=== PATIENT | male | born 1955 | race Caucasian/White ===

== ENCOUNTER 2017-03-15 20:56 | Emergency (ER) | payer OTHER ==
[~2017-03-15] VITALS: Ht 170.2 cm; Wt 104.3 kg
[2017-03-15 21:02] VITALS: BP_SYST 151
[2017-03-15] MEDS ORDERED: ONDANSETRON HCL 4 MG/2 ML VIAL IVP ONE ×2 (21:15→22:45)
[2017-03-15] MEDS ORDERED: NACL 0.9% 1,000 ML IV ONE (21:15)
[2017-03-15] MEDS ORDERED: HYDROmorphone 1 MG INJ. 1 MG/ML AMPUL IVP ONE (21:15)
[2017-03-15] MEDS ORDERED: PROMETHAZINE HCL 50 MG/ML AMP IM ONE (23:00)
[2017-03-15 23:10] LABS: BILIRUBIN,URINE NEGATIVE (NEGATIVE); BLOOD, URINE 3+ (NEGATIVE); CLARITY/URINE HAZY (CLEAR); COLOR,URINE YELLOW (YELLOW); GLUCOSE,URINE 3+ (NEGATIVE); KETONES,URINE 1+ (NEGATIVE); LEUKOCYTE ESTERASE ,URINE NEGATIVE (NEGATIVE); NITRITE, URINE NEGATIVE (NEGATIVE); PROTEIN URINE NEGATIVE (NEGATIVE); UROBILINOGEN,URINE 0.2 (0.2-1.0)
[2017-03-15 23:12] LABS: BACTERIA,URINE FEW /HPF (None Seen); RBC,URINE >100 /HPF (0-3)
[2017-03-15 23:13] LABS: MUCUS,URINE 1+ /LPF (None Seen)
[2017-03-15 23:40] VITALS: BP_SYST 141
== END 2017-03-15 23:40 | disposition home or self-care (01) ==
LOC: SED 20:56
DX: N20.0 Calculus of kidney (principal); E11.9 Type 2 diabetes mellitus without complications; I10 Essential (primary) hypertension; Z88.0 Allergy status to penicillin
CPT/HCPCS: 81000; 96361; 96372; 96374; 96375; 96376; 99284; J1170; J2405; J2550; J7030

== ENCOUNTER 2017-07-05 02:37 | Inpatient (IN) | payer OTHER ==
[~2017-07-05] VITALS: Ht 170.2 cm; Wt 108.4 kg
[2017-07-05 02:39] VITALS: BP_SYST 131
--- NOTE | 2017-07-05 02:40 | NUR ---
Placed in room 05. To gown for exam. Side rails up. Report given to RODERICK Deleon.
--- NOTE | 2017-07-05 02:40 | NUR ---
Patient ambulatory to ED with c/o right sided jaw pain x 2 days. Patient reports 10/10 pain to site. Was seen by dentist today. Told by dentist he had an infection to site, but increased swelling made it unable to operate on. Patient given cipro and tylenol with codeine by dentist with no relief . Presents to ED with mild swelling to jaw. Per patient, pain radiates to right side of neck and face. +N; -V/D. Respirations even and unlabored. No audbile stridor. Will continue to monitor.
--- NOTE | 2017-07-05 02:41 | NUR ---
ED MD Bergeron at bedside for medical evaluation.
[2017-07-05] MEDS ORDERED: methylPREDNISolone SOD SUCC/PF 62.5 MG/ML VIAL IVP ONE (03:00)
[2017-07-05] MEDS ORDERED: NACL 0.9% 1,000 ML IV ONE (03:00)
[2017-07-05] MEDS ORDERED: KETOROLAC TROMETHAMINE 30 MG VIAL IVP ONE (03:00)
[2017-07-05] MEDS ORDERED: CLINDAMYCIN 600 mg/50mL D5W 50 ML IV ONE (03:00)
--- NOTE | 2017-07-05 03:10 | NUR ---
Patient transported off unit via gurney for CT.
--- NOTE | 2017-07-05 03:19 | NUR ---
Patient returned to unit.
[2017-07-05 03:23] LABS: HEMATOCRIT 47.9 % (36-54); HEMOGLOBIN 15.9 g/dL (14.0-18.0); MEAN CORPUSCULAR HEMOGLOBIN 31 pg (27-31); MEAN CORPUSCULAR HGB CONC 33 % (32-36); MEAN CORPUSCULAR VOLUME 94 fL (79.0-98.0); RED BLOOD CELL COUNT(AUTO) 5.12 MIL/uL (4.2-6.2); RED CELL DISTRIBUTION WIDTH 13.3 % (9.0-15.0); WHITE BLOOD COUNT (AUTO) 11.8 K/uL (4.8-10.8)
[2017-07-05 03:24] LABS: BASOPHILS # (AUTO) 0.4 K/uL (0.0-0.2); BASOPHILS % (AUTO) 3.4 % (0.0-2.0); EOSINOPHILS # (AUTO) 0.2 K/uL (0.0-0.4); EOSINOPHILS % (AUTO) 1.6 % (0.0-4.0); LYMPHOCYTES # (AUTO) 2.4 K/uL (1.0-5.5); LYMPHOCYTES % (AUTO) 20.2 % (20.5-51.5); MONOCYTES # (AUTO) 0.8 K/uL (0.0-1.0); MONOCYTES % (AUTO) 7.1 % (1.7-9.3); NEUTROPHILS % (AUTO) 67.7 % (40.0-70.0); PLATELET COUNT (AUTO) 235 K/uL (130-430)
[2017-07-05 03:31] LABS: CALCIUM 8.9 mg/dL (8.4-11.0); CREATININE 0.9 mg/dL (0.55-1.30); POTASSIUM 4.2 mmol/L (3.5-5.1)
[2017-07-05 03:36] LABS: ALBUMIN 3.6 g/dL (3.4-4.8)
--- NOTE | 2017-07-05 03:58 | NUR ---
Oxygen applied at 2 L per minute per nasal cannula. O2 sats 93% by pulse oximetry.
--- NOTE | 2017-07-05 04:03 | NUR ---
ED MD Bergeron at bedside reassessing patient.
[2017-07-05] MEDS ORDERED: METO25TA6 PO (04:10)
[2017-07-05] MEDS ORDERED: GLUXR500 PO (04:11)
--- NOTE | 2017-07-05 04:12 | NUR ---
End of life care decisions discussed with Patient by Dr. Bergeron. Opportunity for questions and concerns addressed. Patient's code status is Full Code paperwork completed and placed in chart.
[2017-07-05] MEDS ORDERED: VANCOMYCIN HCL 1,000 MG in NS 250 ML IV ONE (04:30)
[2017-07-05] MEDS ORDERED: ACETAMINOPHEN 325 MG TABLET PO PRN (04:30)
--- NOTE | 2017-07-05 04:51 | NUR ---
ADMISSION: The patient, GIANCARLO STEVENS, 61 y/o, M admitted by BRADLEY YOUNG MD, was given written information regarding hospital policies, unit procedures and contact persons. Valuables were checked and pt informed Jose will be his nurse.
[2017-07-05 04:57] LABS: BILIRUBIN,URINE NEGATIVE (NEGATIVE); BLOOD, URINE NEGATIVE (NEGATIVE); CLARITY/URINE CLEAR (CLEAR); COLOR,URINE YELLOW (YELLOW); GLUCOSE,URINE 3+ (NEGATIVE); KETONES,URINE 2+ (NEGATIVE); LEUKOCYTE ESTERASE ,URINE NEGATIVE (NEGATIVE); NITRITE, URINE NEGATIVE (NEGATIVE); PH,URINE 5.5 (5.0-8.0); PROTEIN URINE NEGATIVE (NEGATIVE); UROBILINOGEN,URINE 0.2 (0.2-1.0)
--- NOTE | 2017-07-05 04:57 | NUR ---
Patient will be admitted to care of Dr. Clark. Admitted to Telemetry unit. Will go to room 109A. Belongings list completed. Summary report printed. Report will be given at bedside. Transfer to telemetry via ACLS protocol. Licensed nurse present. IV present no signs or symptoms of infiltration.
[2017-07-05 05:00] LABS: BACTERIA,URINE FEW /HPF (None Seen); RBC,URINE 0-3 /HPF (0-3); WBC,URINE 0-3 /HPF (0-3); YEAST,URINE Few /HPF (None Seen)
[2017-07-05 05:06] VITALS: BP_SYST 95
[2017-07-05 05:06] LABS: BARBITURATE, URINE NEGATIVE (NEG <=200); BENZODIAZEPINE, URINE NEGATIVE (NEG <=150); CANNABINOID, URINE NEGATIVE (NEG <=50); COCAINE, URINE NEGATIVE (NEG <=150); METHAMPHETAMINES SCREEN,URINE NEGATIVE (NEG <=500); OPIATE, URINE POSITIVE (NEG <=100); PHENCYCLIDINE SCREEN,URINE NEGATIVE (NEG <=25); UR TRICYCLIC ANTIDEPRESSANTS NEGATIVE (NEG <=300); URINE AMPHETAMINE NEGATIVE (NEG <=500); URINE METHADONE NEGATIVE (NEG <=200); URINE OXYCODONE SCREEN NEGATIVE (NEG <=100); URINE PROPOXYPHENE SCREEN NEGATIVE (NEG <=300)
[2017-07-05] MEDS ORDERED: VANCOMYCIN HCL 1000 MG/VIAL IV ONE (05:22)
[2017-07-05] MEDS: LR 1,000 ML IV SCH ×2 (05:25→21:08)
[2017-07-05] MEDS: INSULIN REGULAR, HUMAN 100 UNITS/ML, 10 ML VIAL (novoLIN R) SUBCUT PRN ×4 (06:04→21:10)
--- NOTE | 2017-07-05 06:59 | NUR ---
CLOSING NOTES PATIENT ON BED, AWAKE, ALERT AND VERBALLY RESPONSIVE WITH NO SIGN OF RESPIRATORY DISTRESS AND NO COMPLAIN OF PAIN AT THIS TIME. IV ATB INFUSING WELL AT THIS TIME. ALL NEEDS ATTENDED AND MET. CALL LIGHT WITHIN REACH.
[2017-07-05] MEDS ORDERED: LISI-600 PO (07:00)
[2017-07-05] MEDS ORDERED: AMLO5TAB4 PO (07:51)
[2017-07-05] MEDS ORDERED: CANA300T PO (07:51)
[2017-07-05] MEDS ORDERED: GABA-529 PO (07:51)
--- NOTE | 2017-07-05 07:55 | NUR ---
OPENING NOTES RECEIVED PATIENT FROM PAPER SEALER. PATIENT RESTING IN BED, EASILY AROUSABLE. A/Ox4. VERBALLY RESPONSIVE. DENIES PAIN AT THIS TIME. CONT ON O2 VIA NC @ 2L/M, LUISES WEL SpO2@ 94%. NO ACUTE DISTRESS. NO SOB. RESPIRATION EVEN AND UNLABORED. SKIN WARM AND DRY TO TOUCH. IVF INFUSING TO RAC, 18G, ULISES WELL. ORIENTED PATIENT TO CALL LIGHT AND PATIENT VERBALIZED UNDERSTANDING. BED IN LOW AND LOCKED POSITION. SIDERAIL UP x2. BED ALARM ON. CONTINUE TO MONITOR. CALL LIGHT IN REACH.
--- NOTE | 2017-07-05 08:20 | NUR ---
NOTES VISTING AT BEDSIDE. PATIENT STABLE. ALL NEEDS MET. CONTINUE TO MONITOR.
--- NOTE | 2017-07-05 09:40 | NUR ---
NOTES PATIENT ASLEEP. NO ACUTE DISTRESS. NO SOB. RESPIRATION EVEN AND UNLABORED. RISE AND FALL OF CHEST NOTED. NC IN PLACE WITH O2@2L/M. CALL LIGHT IN REACH. BED ALARM ON. CONTINUE TO MONITOR.
--- NOTE | 2017-07-05 11:26 | NUR ---
ID , DR SANDS IS AWARE OF THE CONSULT, RE: PHARYNGITIS
[2017-07-05] MEDS ORDERED: HYDROcodone/ACETAMIN 10-325 MG TAB PO PRN (11:45)
[2017-07-05] MEDS ORDERED: ONDANSETRON HCL 4 MG/2 ML VIAL IVP PRN (11:45)
[2017-07-05] MEDS ORDERED: ZOLPIDEM TARTRATE 5 MG TABLET PO PRN (11:45)
[2017-07-05 12:00] VITALS: BP_SYST 115
--- NOTE | 2017-07-05 12:00 | NUR ---
PATIENT SEEN AND EXAMINED BY DR. YOUNG. REPORTED TO MD THAT PATIENT ONLY HAS TYLENOL FOR MILD PAIN AND DOES NOT HAVE ANYTHING FOR MODERATE OR SEVERE PAIN; MD WILL ORDER PAIN MEDS.
--- NOTE | 2017-07-05 12:15 | NUR ---
SEEN AND EXAMINED BY AT BEDSIDE. PATIENT STABLE. NO ACUTE DISTRESS. SKIN WARM AND DRY. ALL NEEDS MET. CALL LIGHT IN REACH. CONTINUE TO MONITOR.
[2017-07-05] MEDS: GABAPENTIN 100 MG CAPSULE PO SCH ×3 (13:00→21:07)
[2017-07-05] MEDS ORDERED: LACTOBACILLUS RHAMNOSUS GG 1 CAP CAPSULE PO ONE (14:00)
[2017-07-05] MEDS ORDERED: LISINOPRIL 20 MG TABLET PO ONE (14:00)
[2017-07-05] MEDS ORDERED: CANAGLIFLOZIN 300 MG TABLET PO ONE (14:00)
[2017-07-05] MEDS ORDERED: amLODIPine BESYLATE 5 MG TABLET PO ONE (14:00)
[2017-07-05] MEDS ORDERED: DOCUSATE SODIUM 250 MG CAPSULE PO ONE (14:00)
[2017-07-05] MEDS ORDERED: METOPROLOL TARTRATE 25 MG TABLET PO ONE (14:00)
--- NOTE | 2017-07-05 15:10 | NUR ---
PATIENT C/O PAIN MEDICATION INEFFECTIVE. PAGED AT [phone] [facility]
[2017-07-05] MEDS: CLINDAMYCIN 600 MG in D5W 50 ML IV SCH ×2 (15:20→20:46)
--- NOTE | 2017-07-05 15:30 | NUR ---
/PAIN REPORTED TO PAIN MEDICATION FOR SEVERE PAIN IS EFFECTIVE PER PATIENT. PATIENT STATES PAIN IS STILL A 10 AND WANTS WHAT HE RECEIVED IN ER. RECEIVED NEW ORDER FOR TORADOL ORDERED FOR SEVERE PAIN.
[2017-07-05] MEDS ORDERED: KETOROLAC TROMETHAMINE 30 MG VIAL ONE (15:37)
--- NOTE | 2017-07-05 15:50 | NUR ---
PAGED , REGARDING PAIN MEDICATION TORADOL STILL INEFFECTIVE. WAITING FOR CALL BACK.
--- NOTE | 2017-07-05 16:00 | NUR ---
DR.HAKAK CONNELL AT BEDSIDE EVALUATING PATIENT AND PAIN MEDICATION INEFFECTIVE. RECEIVED NEW ORDER FOR DILAUDID FOR SEVERE PAIN.
--- NOTE | 2017-07-05 16:30 | NUR ---
NOTES PATIENT STABLE IN BED. PATIENT STATES PAIN MEDICATION SEEMS TO BE WORKING. NO ACUTE DISTRESS. RESPIRATION EVEN AND UNLABORED. SKIN WARM AND DRY TO TOUCH. ALL NEEDS MET. REMINDED PATIENT TO CALL FOR ASSIST IF NEEDED. BED IN LOW AND LOCKED POSITION. SIDERAIL UPx2. BED ALARM. CALL LIGHT IN REACH. PHONE IN REACH. CONTINUE TO MONITOR.
[2017-07-05 16:34] VITALS: BP_SYST 118
[2017-07-05] MEDS: HYDROmorphone 2 MG TAB PO PRN (16:49)
--- NOTE | 2017-07-05 17:30 | NUR ---
NOTES PATIENT IS SITTING IN BED SCROLLING ON IPAD. PATIENT IS STABLE. STATES PAIN IS CONTROLLED AND IS CONTENT. NO ACUTE DISTRESS. SKIN WARM AND DRY TO TOUCH. ALL NEEDS MET. BED IN LOW AND LOCKED POSITION. SIDERAIL UPx2. BED ALARM ON. CALL LIGHT IN REACH. CONTINUE TO MONITOR.
--- NOTE | 2017-07-05 19:00 | NUR ---
CLOSING NOTE PATIENT IN BED SCROLLING ON IPAD. PATIENT STABLE. PATIENT STATED PAIN IS CONTROLLED AT THIS TIME. NO ACUTE DISTRESS. RESPIRATION EVEN AND UNLABORED. SKIN WARM AND DRY TO TOUCH. PATIENT ULISES IVF. ALL NEEDS MET. BED IN LOW AND LOCKED POSITION. SIDERAIL UP x2. BED ALARM ON. CALL LIGHT IN REACH. DAUGHTER SITTING AT BEDSIDE. WILL ENDORSE TO ONCOMING SHIFT.
[2017-07-05 20:00] VITALS: BP_SYST 113
--- NOTE | 2017-07-05 20:00 | NUR ---
INITIAL NOTES RECEIVED PATIENT ON BED AWAKE AND ALERT, WITH FAMILY ON THE BEDSIDE, BREATHING EVEN AND UNLABORED, NO SOB NOTED, NO PAIN NOTED, MAINTAINED ON POSITION OF COMFORT, MAINTAINED SAFETY PRECAUTION, EXPLAINED THE PLAN OF CARE AND VERBALIZED UNDERSTANDING. SCD'S MAINTAINED, ENCOURAGED TO REPORT ANY UNTOWARD S/SX OBSERVED WILL CONTINUE TO MONITOR, CALL LIGHT WITHIN REACH.
[2017-07-05] MEDS: DOCUSATE SODIUM 250 MG CAPSULE PO SCH (21:00)
[2017-07-05] MEDS: LACTOBACILLUS RHAMNOSUS GG 1 CAP CAPSULE PO SCH (21:06)
[2017-07-05] MEDS: LISINOPRIL 20 MG TABLET PO SCH (21:07)
--- NOTE | 2017-07-05 22:00 | NUR ---
RN ROUNDS PATIENT ON BED AWAKE AND ALERT, BREATHING EVEN AND UNLABORED, NO SOB NOTED, NO PAIN NOTED, MAINTAINED ON POSITION OF COMFORT, MAINTAINED SAFETY PRECAUTION, WILL CONTINUE TO MONITOR, CALL LIGHT WITHIN REACH.
[2017-07-05 23:50] VITALS: BP_SYST 106
--- NOTE | 2017-07-05 23:53 | NUR ---
RN ROUNDS PATIENT ON BED SLEEPING AND RESTING BREATHING EVEN AND UNLABORED MAINTAINED POSITION OF COMFORT, MAINTAINED SAFETY PRECAUTION, WILL CONTINUE TO MONITOR CALL LIGHT WITHIN REACH.
--- NOTE | 2017-07-06 | NUR ---
BED ALARM PATIENT REFUSED THE BED ALARM, EXPLAINED THE RISKS AND BENEFITS AND VERBALIZED UNDERSTANDING AND STATED THAT HE WILL NOT GET UP AND FALL. WILL CONTINUE TO MONITOR.
[2017-07-06] MEDS: CLINDAMYCIN 600 MG in D5W 50 ML IV SCH ×4 (01:49→21:44)
--- NOTE | 2017-07-06 02:07 | NUR ---
RN ROUNDS PATIENT ON BED SLEEPING AND RESTING BREATHING EVEN AND UNLABORED NO SOB NOTED, MAINTAINED SAFETY PRECAUTION, MAINTAINED POSITION OF COMFORT, WITH IV INFUSING WELL, CLEAN DRY INTACT WILL CONTINUE TO MONITOR.
[2017-07-06] MEDS: HYDROmorphone 2 MG TAB PO PRN ×3 (03:28→18:24)
--- NOTE | 2017-07-06 04:02 | NUR ---
RN ROUNDS PATIENT ON BED AWAKE AND RESTING, ON SEMI LUO'S POSITION, BREATHING EVEN AND UNLABORED, MAINTAINED ON POSITION OF COMFORT, MAINTAINED SAFETY PRECAUTION, PATIENT STATED THAT HE IS HAVING PAIN ON THE RIGHT SIDE OF THE FACE, PAIN MEDICATION GIVEN AND TOLERATED WELL. WILL CONTINUE TO MONITOR, CALL LIGHT WITHIN REACH.
[2017-07-06] MEDS: KETOROLAC TROMETHAMINE 15 MG VIAL IVP PRN ×2 (06:17→17:29)
[2017-07-06 06:28] LABS: BASOPHILS % (AUTO) 0.1 % (0.0-2.0); HEMATOCRIT 46.2 % (36-54); LYMPHOCYTES # (AUTO) 1.7 K/uL (1.0-5.5); LYMPHOCYTES % (AUTO) 9.7 % (20.5-51.5); MEAN CORPUSCULAR HEMOGLOBIN 31 pg (27-31); MEAN CORPUSCULAR HGB CONC 32 % (32-36); MEAN CORPUSCULAR VOLUME 94 fL (79.0-98.0); MONOCYTES # (AUTO) 0.8 K/uL (0.0-1.0); MONOCYTES % (AUTO) 4.9 % (1.7-9.3); NEUTROPHILS # (AUTO) 14.7 K/uL (1.8-7.7); NEUTROPHILS % (AUTO) 85.3 % (40.0-70.0); PLATELET COUNT (AUTO) 240 K/uL (130-430); RED BLOOD CELL COUNT(AUTO) 4.91 MIL/uL (4.2-6.2); RED CELL DISTRIBUTION WIDTH 13.1 % (9.0-15.0); WHITE BLOOD COUNT (AUTO) 17.2 K/uL (4.8-10.8)
--- NOTE | 2017-07-06 06:32 | NUR ---
ATTENDING MD DR YOUNG WAS CALLED RE: PT COMPLAINING OF HEARTBURN, WANTS SO MED RELIEF. SPOKE TO AMANDA Addendum: 07/06/17 at 0634 by Flor Stark OR/ EDIT: WANTS MED RELIEF
--- NOTE | 2017-07-06 06:35 | NUR ---
RN ROUNDS PATIENT ON BED AWAKE AND ALERT, RESTING ON BED BREATHING EVEN AND UNLABORED NO SOB NOTED WITH O2 AT 2LPM TOLERATING WELL, MAINTAINED SAFETY PRECAUTION, MAINTAINED POSITION OF COMFORT, PATIENT TURNS FROM SIDE TO SIDE, NO PAIN NOTED, IV INFUSING WELL, INTACT CLEAN AND DRY. ASKED IF THE PATIENT IS OK, AND STATED THAT HE HAVING SOME HEART BURN, PAGED MD AND WILL WAIT FOR CALL AND ORDERS. SCD'S MAINTAINED. WILL CONTINUE TO MONITOR PATIENT CALL LIGHT WITHIN REACH.
[2017-07-06] MEDS ORDERED: MAG-AL HYDROX/SIMETH 30 ML UDC ONE (06:56)
[2017-07-06 07:18] LABS: ALBUMIN 3.2 g/dL (3.4-4.8); CALCIUM 8.5 mg/dL (8.4-11.0); CREATININE 0.79 mg/dL (0.55-1.30); POTASSIUM 4.1 mmol/L (3.5-5.1); TOTAL BILIRUBIN 1.2 mg/dL (0.0-1.0)
[2017-07-06] MEDS: MAG-AL HYDROX/SIMETH 30 ML UDC PO SCH ×6 (07:28→21:00)
--- NOTE | 2017-07-06 07:33 | NUR ---
CLOSING NOTES/NEW ORDER GIVEN BY DR BONE 0700 NEW ORDER GIVEN BY DR. BONE WITH MYLANTA 30ML, PO QID, ORDER NOTED AND CARRIED OUT. 0701 MEDICATION GIVEN AND TOLERATED WELL. REPORT GIVEN TO AM NURSE.
--- NOTE | 2017-07-06 08:02 | NUR ---
Opening Note Patient is resting in bed, he is awake and alert, oriented x4, complaining of pain 5/10 on face but states it is tolerable, he is calm, breathing unlabored on room air, saturation is at 97%, vital signs and head to toe assessment performed, patient educated on use of call light for assistance, he verbalized understanding, call light left within reach, bed in lowest position with 2 side rails up, bedside table within reach, will continue to monitor patient
[2017-07-06] MEDS: CANAGLIFLOZIN 300 MG TABLET PO SCH (08:34)
[2017-07-06] MEDS: amLODIPine BESYLATE 5 MG TABLET PO SCH (08:35)
[2017-07-06] MEDS: GABAPENTIN 100 MG CAPSULE PO SCH ×5 (08:35→21:43)
[2017-07-06] MEDS: LISINOPRIL 20 MG TABLET PO SCH (08:36)
[2017-07-06] MEDS: LACTOBACILLUS RHAMNOSUS GG 1 CAP CAPSULE PO SCH ×2 (08:36→21:43)
[2017-07-06] MEDS: DOCUSATE SODIUM 250 MG CAPSULE PO SCH ×2 (08:38→21:00)
[2017-07-06] MEDS: METOPROLOL TARTRATE 25 MG TABLET PO SCH (08:38)
--- NOTE | 2017-07-06 08:40 | NUR ---
Morning Medication Administration patient is sitting up in bed, he is awake and alert complaining of pain 5/10 but states it is tolerable at this time, breathing unlabored on room air, symmetrical chest expansion, able to tolerate medications by mouth, safety precautions in place, bed in lowest position with 2 side rails up, call light left within reach, bedside table within reach, will continue to monitor patient
--- NOTE | 2017-07-06 09:20 | NUR ---
New bag of antibiotics hung at this time, patient has no complaints of pain, breathing unlabored on room air, placed patient on 2L nasal cannula, has no other needs at this time, safety precautions in place, educated patient on using call light for assistance, he verbalized understanding, call light left within reach, bedside table within reach, will continue to monitor patient
[2017-07-06 11:51] VITALS: BP_SYST 109
[2017-07-06] MEDS: INSULIN REGULAR, HUMAN 100 UNITS/ML, 10 ML VIAL (novoLIN R) SUBCUT PRN ×2 (12:14→21:59)
--- NOTE | 2017-07-06 12:17 | NUR ---
Mylanta and Neurontin Administered at this time, patient is calm and sitting up in bed, breathing unlabored on room air, no other needs at this time, safety precautions in place, bed in lowest position with 2 side rails up, call light left within reach, bedside table within reach, will continue to monitor patient
[2017-07-06] MEDS: LR 1,000 ML IV SCH ×2 (13:50→15:19)
--- NOTE | 2017-07-06 14:15 | NUR ---
Patient in pain administered dilaudid PO for pain 7/10 on right cheek, also administered zofran for nausea and he was due for cleocin at this time, breathing still unlabored on room air, IV site is patent and in tact, no signs of redness or swelling, call light left within reach, educated patient on using call light for assistance, verbalized understanding, bed in lowest position with 2 side rails up, bedside table within reach, will continue to monitor patient
--- NOTE | 2017-07-06 15:20 | NUR ---
RN Rounds Patient is resting in bed, awake and alert, complaining of pain 5/10 on right cheek but states it is tolerable at this time, educated patient to inform me if pain gets worst, he verbalized understanding, new bag of Lactated ringers was hung running at 60 mL/hr, IV site patent and in tact, no signs of redness or swelling, safety precautions in place, bed in lowest position with 2 side rails up, call light left within reach, bedside table within reach, will continue to monitor patient
[2017-07-06 16:33] VITALS: BP_SYST 98
--- NOTE | 2017-07-06 17:30 | NUR ---
Ketoralac was administered for patient's pain via IV push, he is agitated in bed, breathing unlabored on room air, his eyes are closed, he does not want his routine scheduled medications at this time, patient requested for me to "leave him alone", did not administer his scheduled medication and left patient in room with safety precautions in place, bed in lowest position with 2 side rails up, call light left within reach, bedside table within reach.
[2017-07-06] MEDS ORDERED: methylPREDNISolone SOD SUCC/PF 62.5 MG/ML VIAL IVP ONE (17:50)
[2017-07-06] MEDS ORDERED: RACEPINEPHRINE HCL 0.5 ML VIAL.NEB INH ONE ×2 (17:50→18:00)
[2017-07-06] MEDS ORDERED: DIPHENHYDRAMINE INJ 50 MG/ML VIAL IVP ONE (17:50)
[2017-07-06] MEDS ORDERED: EPINEPHrine 1 MG/ML AMP IM ONE (17:50)
--- NOTE | 2017-07-06 17:50 | NUR ---
RT NOTES 1749 [facility] CALLED RAPID RESPONSE ON PATIENT. PATIENT STATED HE CAN'T BREATHE. RT RESPONDED GAVE 6LPM SIMPLE MASK, OVERRIDE RACEMIC EPINEPRINE GAVE PT BREATHING TREATMENT. AFTER 15 MINS, FAROOQ JIMÉNEZ. ABG RESULTS REPORTED TO CRABBING MACHINE OPERATOR CHONA AND ENTERED IN [employer]. Addendum: 07/06/17 at 1917 by Moraima Torres RT Amended: Links added.
--- NOTE | 2017-07-06 17:53 | NUR ---
ATTENDING MD DR YOUNG WAS CALLED RE: RESP DISTRESS. SPOKE TO STONE
[2017-07-06] MEDS ORDERED: DIPHENHYDRAMINE INJ 50 MG/ML VIAL ONE (17:54)
[2017-07-06] MEDS ORDERED: EPINEPHrine 1 MG/ML AMP ONE (17:54)
[2017-07-06] MEDS ORDERED: methylPREDNISolone SOD SUCC/PF 62.5 MG/ML VIAL ONE (17:58)
--- NOTE | 2017-07-06 18:24 | NUR ---
Dilaudid Administered for pain 10/10 on patient's right cheek, patient is sitting in chair on bedside, he was able to intake medication orally with a sip of water, encouraged patient to use breathing mask for oxygen because he had it off, O2 saturation at 97%, he was agitated with eyes closed, encouraged patient to take slow deep breaths, also gave patient cold pack for headache, will reassess pain scale, safety precautions remain in place, is at bedside, will continue to monitor
[2017-07-06 19:15] VITALS: BP_SYST 106
--- NOTE | 2017-07-06 19:15 | NUR ---
Closing Note Patient is sitting on chair at bedside, daughter at bedside, patient took off breathing mask, placed nasal cannula on patient's nose for comfort, he was maintaining 97% O2, educated patient on keeping breathing treatment on face, he verbalized understanding, still agitated, asked patient if he felt a little relief from pain, he nodded his head yes, wasn't able to assess pain scale, endorsed to nightclub manager nurse.
--- NOTE | 2017-07-06 19:15 | NUR ---
OPENING NOTE RECEIVED PT ENDORSEMENT FROM DAY SHIFT NURSE. PT IS AOX4. PT APPEARS LETHARGIC AND DROWSY AT THIS TIME. FAMILY AT BEDSIDE. PT DENIES ANY PAIN. VITAL SIGNS WNL. HEAD TO TOE ASSESSMENT PERFORMED. PT'S O2 IS ON @2l/MIN VIA NC. PT'S IV IS RIGHT AC 18G, IV PATENT AND DRY. PT WILL BE TRANSFERRED TO BED 112-A, TO BE CLOSER TO THE NURSING STATION. PT WAS EDUCATED ON USE OF CALL LIGHT FOR ASSISTANCE PT VERBALIZED UNDERSTANDING. SAFETY MEASURES IN PLACE BED WHEELS LOCKED, BED IN LOWEST POSITION, CALL LIGHT WITHIN REACH, SIDE RAILS UP X 2. BEDSIDE TABLE WITHIN REACH. NO FURTHER NEEDS AT THIS TIME. WILL CONTINUE TO MONITOR PT.
--- NOTE | 2017-07-06 20:00 | NUR ---
PT TRANSFERRED PT TRANSFERRED TO BED 112-A, TO BE CLOSE TO THE NURSING STATION. FAMILY AT BEDSIDE. SAFETY MEASURES IN PLACE BED WHEELS LOCKED, BED IN LOWEST POSITION, CALL LIGHT WITHIN REACH, SIDE RAILS UP X 2. BEDSIDE TABLE WITHIN REACH. NO FURTHER NEEDS AT THIS TIME. WILL CONTINUE TO MONITOR PT.
--- NOTE | 2017-07-06 21:59 | NUR ---
RN ROUNDS PT IS AOX4. PT APPEARS LETHARGIC AND DROWSY AT THIS TIME. FAMILY AT BEDSIDE. PT DENIES ANY PAIN. RESPIRATIONS EVEN AND UNLABORED. PT'S O2 IS ON @2l/MIN VIA NC. PT'S IV IS RIGHT AC 18G, IV PATENT AND DRY. PT'S SCHEDULED MEDICATIONS ADMINISTERED ORDERED. PT REFUSED MAGNESIUM AT THIS TIME AND COLACE. BS CHECKED, BS 293, INSULIN ADMINISTERED. PT TOLERATED WELL. SAFETY MEASURES IN PLACE BED WHEELS LOCKED, BED IN LOWEST POSITION, CALL LIGHT WITHIN REACH, SIDE RAILS UP X 2. BEDSIDE TABLE WITHIN REACH. NO FURTHER NEEDS AT THIS TIME. WILL CONTINUE TO MONITOR PT.
[2017-07-07 00:04] VITALS: BP_SYST 98
--- NOTE | 2017-07-07 00:26 | NUR ---
RN ROUNDS PT RESTING WITH EYES CLOSED. FAMILY AT BEDSIDE. PT DENIES ANY PAIN. O2 PLACED ON PT. O2 @ 2L/MIN VIA NC. PT TOLERATING WELL. SAFETY MEASURES IN PLACE BED WHEELS LOCKED, BED IN LOWEST POSITION, CALL LIGHT WITHIN REACH, SIDE RAILS UP X 2. BEDSIDE TABLE WITHIN REACH. NO FURTHER NEEDS AT THIS TIME. WILL CONTINUE TO MONITOR PT.
[2017-07-07] MEDS: CLINDAMYCIN 600 MG in D5W 50 ML IV SCH ×4 (02:29→21:21)
--- NOTE | 2017-07-07 03:20 | NUR ---
RN ROUNDS PT RESTING WITH EYES CLOSED. RESPIRATIONS EVEN AND UNLABORED. IV PATENT AND DRY. IVF INFUSING WELL. PT'S O2 IS ON @2l/MIN VIA NC. SAFETY MEASURES IN PLACE BED WHEELS LOCKED, BED IN LOWEST POSITION,BED ALARM ON, CALL LIGHT WITHIN REACH, SIDE RAILS UP X 2. BEDSIDE TABLE WITHIN REACH. NO FURTHER NEEDS AT THIS TIME. WILL CONTINUE TO MONITOR PT.
[2017-07-07] MEDS: INSULIN REGULAR, HUMAN 100 UNITS/ML, 10 ML VIAL (novoLIN R) SUBCUT PRN (06:08)
--- NOTE | 2017-07-07 06:08 | NUR ---
CLOSING NOTE WILL ENDORSE TO DAY SHIFT. PT AWAKE AND ALERT. RESTING IN HIGH FOWLERS POSITION IN BED. RESPIRATIONS EVEN AND UNLABORED. CLOSING NOTE WILL ENDORSE PT TO MODEL MAKER APPRENTICE. PT RESTING WITH EYES OPEN. RESPIRATIONS EVEN AND UNLABORED. PT REPORTS NO PAIN. NO SOB/ DISTRESS NOTED AT THIS TIME. BLOOD SUGAR CHECKED, BS 158, INSULIN COVERAGE ADMINISTERED. PT ASSISTED TO THE RESTROOM AND BACK INTO BED. SAFETY MEASURES IN PLACE BED WHEELS LOCKED, BED IN LOWEST POSITION, CALL LIGHT WITHIN REACH, SIDE RAILS UP X 2. BEDSIDE TABLE WITHIN REACH. NO FURTHER NEEDS AT THIS TIME. WILL CONTINUE TO MONITOR PT. Addendum: 07/07/17 at 0717 by Do Thomason RN WRONG PT
[2017-07-07 06:55] LABS: BASOPHILS % (AUTO) 0.1 % (0.0-2.0); HEMATOCRIT 44.1 % (36-54); HEMOGLOBIN 14.6 g/dL (14.0-18.0); LYMPHOCYTES # (AUTO) 0.9 K/uL (1.0-5.5); LYMPHOCYTES % (AUTO) 8.1 % (20.5-51.5); MEAN CORPUSCULAR HEMOGLOBIN 32 pg (27-31); MEAN CORPUSCULAR HGB CONC 33 % (32-36); MEAN CORPUSCULAR VOLUME 95 fL (79.0-98.0); MONOCYTES # (AUTO) 0.1 K/uL (0.0-1.0); MONOCYTES % (AUTO) 1.1 % (1.7-9.3); NEUTROPHILS # (AUTO) 10.1 K/uL (1.8-7.7); NEUTROPHILS % (AUTO) 90.7 % (40.0-70.0); PLATELET COUNT (AUTO) 225 K/uL (130-430); RED BLOOD CELL COUNT(AUTO) 4.62 MIL/uL (4.2-6.2); RED CELL DISTRIBUTION WIDTH 13.4 % (9.0-15.0); WHITE BLOOD COUNT (AUTO) 11.1 K/uL (4.8-10.8)
[2017-07-07 07:13] LABS: CALCIUM 8.6 mg/dL (8.4-11.0); CREATININE 0.82 mg/dL (0.55-1.30); POTASSIUM 5.1 mmol/L (3.5-5.1)
--- NOTE | 2017-07-07 07:13 | NUR ---
CHARTING WRONG PT. PT AWAKE AND ALERT IN HIGH FOWLERS POSITION. NO PAIN REPORTED. RESPIRATIONS EVEN AND UNLABORED. NO SOB/DISTRESS NOTED. BS CHECKED. BS 158, INSULIN COVERAGE ADMINISTERED. SAFETY MEASURES IN PLACE. CALL LIGHT WITHIN REACH. BED WHEELS LOCKED AND IN LOWEST POSITION. BED ALARM ON. SIDE RAILS UP X 2. WILL CONTINUE TO MONITOR PT.
--- NOTE | 2017-07-07 07:20 | NUR ---
INITIAL NOTE RECEIVED PATIENT FROM INCOMING INSPECTOR NURSE, PATIENT IS AWAKE AND ALERT, NO SIGNS OF DISTRESS NOTED, BREATHING IS EVEN AND UNLABORED, PATIENT HAS IV IN LEFT FOREARM WITH IV FLUIDS INFUSING, NO SIGNS OF INFILTRATION NOTED, INSTRUCTED PATIENT TO USE CALL NGUYEN IF ASSISTANCE IS NEEDED, PATIENT VERBALIZED UNDERSTANDING, CALL NGUYEN LEFT NEXT TO PATIENT'S HAND, BED IN LOWEST POSITION, SIDE RAILS UP, FALL PRECAUTIONS IN PLACE.
[2017-07-07 08:06] VITALS: BP_SYST 125
[2017-07-07] MEDS: DOCUSATE SODIUM 250 MG CAPSULE PO SCH ×3 (08:24→21:00)
[2017-07-07] MEDS: LACTOBACILLUS RHAMNOSUS GG 1 CAP CAPSULE PO SCH ×2 (08:25→21:20)
[2017-07-07] MEDS: GABAPENTIN 100 MG CAPSULE PO SCH ×4 (08:25→21:20)
[2017-07-07] MEDS: MAG-AL HYDROX/SIMETH 30 ML UDC PO SCH ×5 (08:28→21:00)
[2017-07-07] MEDS: amLODIPine BESYLATE 5 MG TABLET PO SCH (08:29)
[2017-07-07] MEDS: LISINOPRIL 20 MG TABLET PO SCH (08:30)
[2017-07-07] MEDS: METOPROLOL TARTRATE 25 MG TABLET PO SCH (08:30)
[2017-07-07] MEDS: HYDROcodone/ACETAMIN 5-325 MG TAB (NORCO/ VICODIN) PO PRN ×2 (08:39→13:08)
[2017-07-07] MEDS: CANAGLIFLOZIN 300 MG TABLET PO SCH (08:40)
--- NOTE | 2017-07-07 08:45 | NUR ---
MORNING MEDICATION/PAIN MEDICATION PATIENT RECEIVED MORNING MEDICATION, PATIENT ALSO RECEIVED MEDICATION FOR PAIN, INSTRUCTED PATIENT TO NOTIFY NURSE IF PAIN IS INCREASING, PATIENT VERBALIZED UNDERSTANDING, NO OTHER NEEDS AT THIS TIME, WILL CONTINUE TO MONITOR.
--- NOTE | 2017-07-07 10:39 | NUR ---
RN ROUNDS PATIENT SITTING UP IN CHAIR BY WINDOW, PATIENT HAS NO COMPLAINTS OF PAIN OR DISCOMFORT AT THIS TIME, WILL CONTINUE TO MONITOR, FALL PRECAUTIONS IN PLACE.
[2017-07-07] MEDS: HYDROmorphone 2 MG TAB PO PRN (11:09)
--- NOTE | 2017-07-07 11:36 | NUR ---
PAGED PAGED CESIA CONNELL AT [phone] SPOKE WITH GERMAINE.
--- NOTE | 2017-07-07 11:44 | NUR ---
RN ROUNDS ACCUCHECK DONE KG=207, NO INSULIN REQUIRED AT THIS TIME, CALL NGUYEN WITHIN REACH OF PATIENT, WILL CONTINUE TO MONITOR, FALL PRECAUTIONS IN PLACE.
[2017-07-07 12:54] VITALS: BP_SYST 125
--- NOTE | 2017-07-07 13:15 | NUR ---
RN ROUNDS PATIENT RECEIVED PRN PAIN MEDICATION FOR PAIN RIGHT CHEEK, NO OTHER NEEDS AT THIS TIME, WILL CONTINUE TO MONITOR.
[2017-07-07] MEDS ORDERED: KETOROLAC TROMETHAMINE 15 MG VIAL IVP ONE (14:00)
[2017-07-07] MEDS: MORPHINE 4 MG/ML INJ. SYRINGE IVP PRN ×2 (14:22→19:45)
[2017-07-07] MEDS ORDERED: MORPHINE SULFATE 15 MG TABLET.SA PO ONE (15:00)
--- NOTE | 2017-07-07 15:30 | NUR ---
RN ROUNDS PATIENT RESTING IN BED, PATIENT FEELS BETTER AFTER GETTING MORPHINE, NO OTHER NEEDS AT THIS TIME, WILL CONTINUE TO MONITOR.
[2017-07-07 16:24] VITALS: BP_SYST 114
--- NOTE | 2017-07-07 16:46 | NUR ---
RN ROUNDS PATIENT GIVEN PO MORPHINE, LATE DUE TO PATIENT CARE, PATIENT IN STABLE CONDITION, CALL NGUYEN NEXT TO PATIENT'S HAND, BED IN LOWEST POSITION, FALL PRECAUTIONS IN PLACE, WILL CONTINUE TO MONITOR.
--- NOTE | 2017-07-07 18:15 | NUR ---
CLOSING NOTE PATIENT SITTING UP IN BED WATCHING TV, PATIENT IN STABLE CONDITION, PATIENT HAS NO COMPLAINTS OF PAIN OR DISCOMFORT AT THIS TIME, ALL NEEDS MET, WILL ENDORSE PATIENT TO INFORMATION SYSTEMS TECHNICIAN NURSE, CALL NGUYEN LEFT NEXT TO PATIENT'S HAND, BED IN LOWEST POSITION, SIDE RAIL UP, FALL PRECAUTIONS IN PLACE.
[2017-07-07 19:25] VITALS: BP_SYST 132
--- NOTE | 2017-07-07 19:45 | NUR ---
OPENING NOTE RECEIVED PT ENDORSEMENT FROM DAY SHIFT NURSE. PT IS AOX4. VITAL SIGNS WNL. HEAD TO TOE ASSESSMENT PERFORMED. PT'S IV IS ON LEFT HAND 22G, IV PATENT AND DRY. MORPHINE IVP GIVEN ORDERED FOR PAIN. PT TOLERATED WELL. PT WAS EDUCATED ON USE OF CALL LIGHT FOR ASSISTANCE PT VERBALIZED UNDERSTANDING. SAFETY MEASURES IN PLACE BED WHEELS LOCKED, BED IN LOWEST POSITION, CALL LIGHT WITHIN REACH, SIDE RAILS UP X 2. BEDSIDE TABLE WITHIN REACH. NO FURTHER NEEDS AT THIS TIME. WILL CONTINUE TO MONITOR PT
[2017-07-07] MEDS: MORPHINE SULFATE 15 MG TABLET.SA PO SCH (21:20)
--- NOTE | 2017-07-07 21:20 | NUR ---
RN ROUNDS PT IS AWAKE AND ALERT. PT IS IN HIGH FOWLERS POSITION WATCHING VIDEOS ON IPAD. DTR AT BEDSIDE. PT'S IV PATENT AND DRY. SCHEDULED MEDICATIONS ADMINISTERED ORDERED. PT TOLERATED WELL. FLUIDS INFUSING WELL. SAFETY MEASURES IN PLACE BED WHEELS LOCKED, BED IN LOWEST POSITION, CALL LIGHT WITHIN REACH, SIDE RAILS UP X 2. BEDSIDE TABLE WITHIN REACH. NO FURTHER NEEDS AT THIS TIME. WILL CONTINUE TO MONITOR PT
--- NOTE | 2017-07-07 21:24 | NUR ---
RN ROUNDS PT AWAKE AND ALERT WATCHING VIDEOS ON HIS IPAD. DTR AT BEDSIDE. IV PATENT AND DRY. BLOOD SUGAR CHECKED. BS 139, NO INSULIN COVERAGE NEEDED AT THIS TIME. SAFETY MEASURES IN PLACE BED WHEELS LOCKED, BED IN LOWEST POSITION, CALL LIGHT WITHIN REACH, SIDE RAILS UP X 2. BEDSIDE TABLE WITHIN REACH. NO FURTHER NEEDS AT THIS TIME. WILL CONTINUE TO MONITOR PT
--- NOTE | 2017-07-07 23:00 | NUR ---
RN ROUNDS PT RESTING WITH EYES CLOSED. RESPIRATIONS EVEN AND UNLABORED. IV PATENT AND DRY. SAFETY MEASURES IN PLACE BED WHEELS LOCKED, BED IN LOWEST POSITION, CALL LIGHT WITHIN REACH, SIDE RAILS UP X 2. BEDSIDE TABLE WITHIN REACH. NO FURTHER NEEDS AT THIS TIME. WILL CONTINUE TO MONITOR PT
--- NOTE | 2017-07-08 00:30 | NUR ---
RN ROUNDS Patient asleep, respirations even and unlabored, on room air, vital signs stable. Safety measures in place, call light within reach, will monitor.
[2017-07-08 00:47] VITALS: BP_SYST 111
--- NOTE | 2017-07-08 01:08 | NUR ---
RN ROUNDS PT RESTING WITH EYES CLOSED. RESPIRATIONS EVEN AND UNLABORED. NO SOB/DISTRESS NOTED AT THIS TIME. SAFETY MEASURES IN PLACE BED WHEELS LOCKED, BED IN LOWEST POSITION, CALL LIGHT WITHIN REACH, SIDE RAILS UP X 2. BEDSIDE TABLE WITHIN REACH. NO FURTHER NEEDS AT THIS TIME. WILL CONTINUE TO MONITOR PT
[2017-07-08] MEDS: CLINDAMYCIN 600 MG in D5W 50 ML IV SCH ×3 (02:55→13:36)
[2017-07-08] MEDS: MORPHINE 4 MG/ML INJ. SYRINGE IVP PRN ×2 (03:11→14:50)
--- NOTE | 2017-07-08 03:56 | NUR ---
RN ROUNDS Patient resting quietly at this time, respirations even and unlabored. Due antibiotics administered. Patient was c/o of pain earlier, medicated with morphine for pain management. Educated on fall and safety measures, call light within reach, will monitor.
--- NOTE | 2017-07-08 06:50 | NUR ---
CLOSING NOTE WILL ENDORSE PT REPORT TO DAY SHIFT NURSE. PT RESTING WITH EYES CLOSED. RESPIRATIONS EVEN AND UNLABORED. NO S/S OF SOB/ DISTRESS NOTED. PT EASILY AWAKEN. ACCU CHECK DONE SCHEDULED. BS 104, NO INSULIN COVERAGE NEEDED A THIS TIME. ALL NEEDS MET THROUGHOUT SHIFT. SAFETY MEASURES IN PLACE BED WHEELS LOCKED, BED IN LOWEST POSITION, CALL LIGHT WITHIN REACH, SIDE RAILS UP X 2. BEDSIDE TABLE WITHIN REACH. NO FURTHER NEEDS AT THIS TIME. WILL CONTINUE TO MONITOR PT
--- NOTE | 2017-07-08 08:07 | NUR ---
OPENING NOTE PATIENT REPORT RECEIVED FROM FASHION INTERN NURSENOAH. PATIENT RESTING COMFORTABLY. PATIENT NEEDS MET AT THIS TIME. PATIENTS BED IN LOWEST POSITION, CALL LIGHT WITHIN REACH, AND SIDE RAILS ARE UP FOR SAFETY. PATIENTS IVF SALINE LOCKED PER MD ORDERS. PATIENT HAS NO ACUTE SIGNS OF DISTRESS AT THIS TIME. WILL CONTINUE TO MONITOR PATIENT FOR CHANGES IN STATUS.
[2017-07-08] MEDS: MAG-AL HYDROX/SIMETH 30 ML UDC PO SCH ×3 (09:00→17:00)
[2017-07-08] MEDS: DOCUSATE SODIUM 250 MG CAPSULE PO SCH (09:00)
[2017-07-08] MEDS: METOPROLOL TARTRATE 25 MG TABLET PO SCH (09:02)
[2017-07-08] MEDS: LACTOBACILLUS RHAMNOSUS GG 1 CAP CAPSULE PO SCH (09:02)
[2017-07-08] MEDS: MORPHINE SULFATE 15 MG TABLET.SA PO SCH (09:03)
[2017-07-08] MEDS: GABAPENTIN 100 MG CAPSULE PO SCH ×3 (09:03→17:00)
[2017-07-08] MEDS: amLODIPine BESYLATE 5 MG TABLET PO SCH (09:03)
[2017-07-08] MEDS: LISINOPRIL 20 MG TABLET PO SCH (09:04)
[2017-07-08] MEDS: CANAGLIFLOZIN 300 MG TABLET PO SCH (09:06)
[2017-07-08 09:14] VITALS: BP_SYST 114
--- NOTE | 2017-07-08 09:40 | NUR ---
NOTE PATIENT SITTING UPRIGHT IN BED COMFORTABLE. AWAITING MD ARRIVAL, PATIENT WOULD LIKE TO BE DISCHARGED TODAY IF POSSIBLE. PATIENT NEEDS MET AT THIS TIME. WILL CONTINUE TO FOLLOW UP AND MONITOR.
--- NOTE | 2017-07-08 11:15 | NUR ---
NOTE BLOOD SUGAR CHECK WAS 138 MG/DL, NO INSULIN NEEDED FOR COVERAGE. NEEDS MET AT THIS TIME. WILL CONTINUE TO FOLLOW UP AND MONITOR.
[2017-07-08 12:18] VITALS: BP_SYST 116
--- NOTE | 2017-07-08 12:45 | NUR ---
NOTE PATIENT RESTING COMFORTABLY, NEEDS MET AT THIS TIME. WILL CONTINUE TO MONITOR AND FOLLOW UP. ENCOURAGED TO CALL IF NEEDS ARISE. PATIENT WOULD LIKE TO GO HOME IF OKAY WITH MD.
--- NOTE | 2017-07-08 14:25 | NUR ---
NOTE PATIENT RESTING COMFORTABLY, WOULD LIKE PAIN MEDICATION WHEN AVAILABLE. PATIENT NEEDS MET AT THIS TIME. PATIENTS BED IN LOWEST POSITION, CALL LIGHT WITHIN REACH. SIDE RAILS ARE UP FOR SAFETY MEASURES. PATIENT ENCOURAGED TO CALL IF NEEDS ARISE. WILL CONTINUE TO MONITOR IF NEEDS ARISE.
[2017-07-08 16:07] VITALS: BP_SYST 110
--- NOTE | 2017-07-08 16:37 | NUR ---
NOTE DR. YOUNG ARRIVAL ON UNIT, PATIENT ANXIOUS TO LEAVE. PATIENT WOULD LIKE TO GO HOME. WILL AWAIT ORDERS IF MD DEEMS APPROPRIATE FOR DISCHARGE. PATIENT HAS SPOKE WITH CHARGE NURSE AND EXPRESSED THAT HE IS EAGER TO HOME. WILL CONTINUE TO FOLLOW UP.
[2017-07-08 17:21] VITALS: BP_SYST 110
[2017-07-08] MEDS ORDERED: DOCU250C PO (17:29)
[2017-07-08] MEDS ORDERED: LEVO500T20 PO (17:29)
[2017-07-08] MEDS ORDERED: MORP15TA PO (17:29)
[2017-07-08] MEDS ORDERED: CLIN-77 PO (17:30)
[2017-07-08] MEDS ORDERED: L.RH1CAP PO (17:30)
--- NOTE | 2017-07-08 17:50 | NUR ---
D/C Patient Patient given medication reconciliation form and D/C instructions. Exit Care provided. Patient verbalized understanding. MD discussed with patient the results and treatment provided. Ambulatory with steady gait for discharge to home. Patient in stable condition, ID band removed. IV catheter removed, intact and dressing applied, no active bleeding. Rx of Colace, Levaquin, Morphine, Clindamycin, and probiotic given. Patient educated on pain management. All belongings sent with patient. Patient awaiting his ride. Will continue to follow up. Patient ambulatory to restroom to get dressed and ready for discharge. Patient encouraged to call when ride arrives.
--- NOTE | 2017-07-08 18:25 | NUR ---
NOTE PATIENT LEFT WITH DAUGHTER RIDE. PATIENT WHEELED OUT VIA WHEELCHAIR. AMBULATORY WITH STEADY GAIT TO CAR. ALL BELONGINGS SENT WITH PATIENT.
== END 2017-07-08 18:25 | disposition home or self-care (01) | DRG 815 ==
LOC: SED 02:37 → STU 04:29 → SMU 11:46 → STU 07-06 20:08
PROVIDERS: ADMIT Internal Medicine; ATTEND Internal Medicine
DX: I88.8 Other nonspecific lymphadenitis (principal); K12.2 Cellulitis and abscess of mouth; D72.829 Elevated white blood cell count, unspecified; E11.9 Type 2 diabetes mellitus without complications; E66.9 Obesity, unspecified; F41.9 Anxiety disorder, unspecified; G47.33 Obstructive sleep apnea (adult) (pediatric); K04.7 Periapical abscess without sinus; I10 Essential (primary) hypertension; K11.20 Sialoadenitis, unspecified; Z79.899 Other long term (current) drug therapy; Z88.0 Allergy status to penicillin; Z86.73 Personal history of transient ischemic attack (TIA), and cerebral infarction without residual deficits; Z90.89 Acquired absence of other organs; Z68.37 Body mass index [BMI] 37.0-37.9, adult
CPT/HCPCS: 36415; 36600; 70490; 71045; 80048; 80053; 80307; 81000-TC; 82803-TC; 82962; 83036; 83605; 85025; 87040-TC; 94640; 96365; 96375; 99285; J0171; J1200; J1815; J1885; J1956; J2270; J2405; J2930; J3370; J3490; J7030; J7050; J7060; J7120

== ENCOUNTER 2018-12-13 20:36 | Inpatient (IN) | payer OTHER ==
[~2018-12-13] VITALS: Ht 170.2 cm; Wt 105.8 kg
[~2018-12-13 20:36] MED LIST: AMLO5TAB4 PO; CANA300T PO; CLIN300C11 PO; DOCU250C14 PO; GABA-529 PO; GLUXR500 PO; L.RH1CAP PO; LEVO500T20 PO; LISI-600 PO; METO25TA6 PO; MORP15TA PO
[2018-12-13 20:39] VITALS: BP_SYST 150
[2018-12-13 20:57] LABS: BASOPHILS # (AUTO) 0.1 K/uL (0.0-0.2); BASOPHILS % (AUTO) 0.7 % (0.0-2.0); EOSINOPHILS # (AUTO) 0.1 K/uL (0.0-0.4); EOSINOPHILS % (AUTO) 0.9 % (0.0-4.0); HEMATOCRIT 47.2 % (36-54); HEMOGLOBIN 16.2 g/dL (14.0-18.0); LYMPHOCYTES % (AUTO) 20.3 % (20.5-51.5); MEAN CORPUSCULAR HEMOGLOBIN 32 pg (27-31); MEAN CORPUSCULAR HGB CONC 34 % (32-36); MEAN CORPUSCULAR VOLUME 94 fL (79.0-98.0); MONOCYTES # (AUTO) 0.9 K/uL (0.0-1.0); MONOCYTES % (AUTO) 8.7 % (1.7-9.3); NEUTROPHILS # (AUTO) 6.8 K/uL (1.8-7.7); NEUTROPHILS % (AUTO) 69.4 % (40.0-70.0); PLATELET COUNT (AUTO) 180 K/uL (130-430); RED BLOOD CELL COUNT(AUTO) 5.03 MIL/uL (4.2-6.2); RED CELL DISTRIBUTION WIDTH 14.3 % (9.0-15.0); WHITE BLOOD COUNT (AUTO) 9.8 K/uL (4.8-10.8)
[2018-12-13 20:59] LABS: CALCIUM 9.2 mg/dL (8.4-11.0); POTASSIUM 4.1 mmol/L (3.5-5.1)
[2018-12-13] MEDS ORDERED: NITROGLYCERIN 0.4 MG TAB.SUBL SL ONE (21:00)
[2018-12-13] MEDS ORDERED: ASPIRIN 325 MG TABLET PO ONE (21:00)
[2018-12-13 21:06] LABS: ALBUMIN 3.4 g/dL (3.4-4.8); TOTAL BILIRUBIN 1.2 mg/dL (0.0-1.0)
[2018-12-13] MEDS ORDERED: fentaNYL CITRATE/PF 100 MCG/2 ML AMP IVP ONE (21:30)
[2018-12-13] MEDS ORDERED: IOHEXOL 350 mgI/mL, 150 ML INFUS..BTL IV ONE (21:43)
[2018-12-13] MEDS ORDERED: FAMOTIDINE PF 20 MG/2 ML VIAL IVP ONE (21:45)
[2018-12-13] MEDS ORDERED: MORPHINE 4 MG/ML INJ. SYRINGE IVP ONE (21:45)
[2018-12-13 22:27] LABS: BILIRUBIN,URINE NEGATIVE (NEGATIVE); CLARITY/URINE CLEAR (CLEAR); COLOR,URINE YELLOW (YELLOW); GLUCOSE,URINE 3+ (NEGATIVE); KETONES,URINE NEGATIVE (NEGATIVE); LEUKOCYTE ESTERASE ,URINE NEGATIVE (NEGATIVE); NITRITE, URINE NEGATIVE (NEGATIVE); PH,URINE 5.5 (5.0-8.0); PROTEIN URINE NEGATIVE (NEGATIVE); UROBILINOGEN,URINE 0.2 (0.2-1.0)
[2018-12-13 22:31] LABS: BLOOD, URINE TRACE (NEGATIVE)
[2018-12-13 22:38] LABS: BACTERIA,URINE FEW /HPF (None Seen); WBC,URINE 0-3 /HPF (0-3)
[2018-12-13] MEDS ORDERED: VITD2000 PO (22:39)
[2018-12-13] MEDS ORDERED: CYAN500T47 PO (22:39)
[2018-12-13] MEDS ORDERED: LIP10 PO (22:39)
[2018-12-14] VITALS (7 sets, daily range): BP systolic 114–154
[2018-12-14] MEDS ORDERED: NITROGLYCERIN 0.4 MG TAB.SUBL SL ONE (00:45)
[2018-12-14] MEDS ORDERED: NITROGLYCERIN 0.4 MG TAB.SUBL SL PRN (02:00)
[2018-12-14] MEDS ORDERED: MORPHINE 4 MG/ML INJ. SYRINGE IVP PRN (02:00)
[2018-12-14] MEDS: MORPHINE 2 MG/ML INJ. SYRINGE IVP PRN ×2 (05:03→07:33)
[2018-12-14] MEDS: CHOLECALCIFEROL (VITAMIN D3) 2,000 UNIT TABLET PO SCH ×2 (09:31→10:42)
[2018-12-14] MEDS: GABAPENTIN 100 MG CAPSULE PO SCH ×3 (09:31→21:12)
[2018-12-14] MEDS: amLODIPine BESYLATE 10 MG TABLET PO SCH ×3 (09:31→10:45)
[2018-12-14] MEDS: ASPIRIN 81 MG TAB.CHEW PO SCH ×2 (09:32→10:42)
[2018-12-14] MEDS: ATORVASTATIN 10 MG TABLET PO SCH ×2 (09:32→10:41)
[2018-12-14] MEDS: METOPROLOL TARTRATE 50 MG TABLET PO SCH ×2 (09:32→10:42)
[2018-12-14] MEDS: LISINOPRIL 20 MG TABLET PO SCH ×3 (09:32→21:11)
[2018-12-14] MEDS: ENOXAPARIN SODIUM 40 MG/0.4 ML SYRINGE SUBCUT SCH (09:34)
[2018-12-14] MEDS ORDERED: KETOROLAC TROMETHAMINE 30 MG VIAL IVP ONE (09:45)
[2018-12-14] MEDS ORDERED: PANTOPRAZOLE SODIUM 40 MG TAB PO ONE (09:45)
[2018-12-14] MEDS ORDERED: LevALBUTEROL HCL 1.25 MG/0.5 ML *CONC.* VIAL.NEB (XOPENEX CONC.) INH PRN ×2 (10:00→14:30)
[2018-12-14] MEDS ORDERED: KCL 20 mEq in 0.45% NS 1000 mL 1,000 ML IV SCH (10:00)
[2018-12-14] MEDS ORDERED: KETOROLAC TROMETHAMINE 15 MG VIAL IVP PRN (10:00)
[2018-12-14] MEDS ORDERED: LevALBUTEROL HCL 1.25 MG/0.5 ML *CONC.* VIAL.NEB (XOPENEX CONC.) INH ONE (10:00)
[2018-12-14] MEDS ORDERED: PANTOPRAZOLE SODIUM 40 MG/VIAL (PROTONIX) IVP ONE (10:30)
[2018-12-14] MEDS ORDERED: methylPREDNISolone SOD SUCC/PF 62.5 MG/ML VIAL IVP ONE (14:30)
[2018-12-14] MEDS ORDERED: FAMOTIDINE PF 20 MG/2 ML VIAL IVP ONE (14:30)
[2018-12-14] MEDS ORDERED: LevALBUTEROL HCL 1.25 MG/0.5 ML *CONC.* VIAL.NEB (XOPENEX CONC.) INH SCH (15:00)
[2018-12-14] MEDS: INSULIN REGULAR, HUMAN 100 UNITS/ML, 10 ML VIAL (humuLIN R) SUBCUT PRN ×2 (16:59→21:21)
[2018-12-14] MEDS ORDERED: MILK OF MAGNESIA 30 ML UDC PO PRN (18:45)
[2018-12-14] MEDS: LevALBUTEROL HCL 1.25 MG/0.5 ML *CONC.* VIAL.NEB (XOPENEX CONC.) INH SCH (19:36)
[2018-12-14] MEDS ORDERED: PANTOPRAZOLE SODIUM 40 MG/VIAL (PROTONIX) IVP SCH ×2 (21:00)
[2018-12-14] MEDS: FAMOTIDINE PF 20 MG/2 ML VIAL IVP SCH (21:12)
[2018-12-14] MEDS: methylPREDNISolone SOD SUCC/PF 62.5 MG/ML VIAL IVP SCH (21:27)
[2018-12-15 00:35] VITALS: BP_SYST 144
[2018-12-15] MEDS: LevALBUTEROL HCL 1.25 MG/0.5 ML *CONC.* VIAL.NEB (XOPENEX CONC.) INH SCH ×2 (00:46→07:37)
[2018-12-15] MEDS: methylPREDNISolone SOD SUCC/PF 62.5 MG/ML VIAL IVP SCH ×2 (06:11→14:28)
[2018-12-15] MEDS: INSULIN REGULAR, HUMAN 100 UNITS/ML, 10 ML VIAL (humuLIN R) SUBCUT PRN ×3 (06:17→18:05)
[2018-12-15 07:42] LABS: THYROID STIMULATING HORMONE 0.29 uIu/mL (0.34-4.82)
[2018-12-15 08:06] VITALS: BP_SYST 185
[2018-12-15] MEDS: FAMOTIDINE PF 20 MG/2 ML VIAL IVP SCH (08:54)
[2018-12-15] MEDS: METOPROLOL TARTRATE 50 MG TABLET PO SCH (08:58)
[2018-12-15] MEDS: ASPIRIN 81 MG TAB.CHEW PO SCH (08:58)
[2018-12-15] MEDS: ATORVASTATIN 10 MG TABLET PO SCH (08:59)
[2018-12-15] MEDS: LISINOPRIL 20 MG TABLET PO SCH (08:59)
[2018-12-15] MEDS: CHOLECALCIFEROL (VITAMIN D3) 2,000 UNIT TABLET PO SCH (08:59)
[2018-12-15] MEDS ORDERED: PANTOPRAZOLE SODIUM 40 MG TAB PO SCH (09:00)
[2018-12-15] MEDS: ENOXAPARIN SODIUM 40 MG/0.4 ML SYRINGE SUBCUT SCH (09:04)
[2018-12-15] MEDS: GABAPENTIN 100 MG CAPSULE PO SCH (09:10)
[2018-12-15 12:59] VITALS: BP_SYST 117
[2018-12-15 16:15] VITALS: BP_SYST 132
[2018-12-15 17:34] VITALS: BP_SYST 134
== END 2018-12-15 19:15 | disposition home or self-care (01) | DRG 206 ==
LOC: SED 20:36 → STU 12-14 00:35
PROVIDERS: ADMIT Family Medicine; ATTEND Family Medicine
DX: M94.0 Chondrocostal junction syndrome [Tietze] (principal); B34.9 Viral infection, unspecified; I10 Essential (primary) hypertension; G47.33 Obstructive sleep apnea (adult) (pediatric); K21.9 Gastro-esophageal reflux disease without esophagitis; G89.29 Other chronic pain; F41.9 Anxiety disorder, unspecified; E11.42 Type 2 diabetes mellitus with diabetic polyneuropathy; E66.01 Morbid (severe) obesity due to excess calories; K74.60 Unspecified cirrhosis of liver; E11.65 Type 2 diabetes mellitus with hyperglycemia; E27.8 Other specified disorders of adrenal gland; Z88.0 Allergy status to penicillin; Z79.899 Other long term (current) drug therapy; Z86.73 Personal history of transient ischemic attack (TIA), and cerebral infarction without residual deficits; Z90.49 Acquired absence of other specified parts of digestive tract; Z79.84 Long term (current) use of oral hypoglycemic drugs; Z87.891 Personal history of nicotine dependence; Z99.81 Dependence on supplemental oxygen; Z90.89 Acquired absence of other organs; Q27.8 Other specified congenital malformations of peripheral vascular system; Z68.36 Body mass index [BMI] 36.0-36.9, adult
CPT/HCPCS: 36415; 71045; 71275; 80053; 80061; 81000-TC; 82550-TC; 82962; 83036; 83735-TC; 83880; 84443-TC; 84484; 85025; 85379; 93005; 93306; 94640; 94660; 94760; 96374; 96375; 99285; C9113; G0378; J1650; J1885; J1956; J2270; J2930; J3010; J3480; J3490; J7612; Q9967

== ENCOUNTER 2020-01-17 19:38 | Emergency (ER) | payer OTHER ==
[~2020-01-17] VITALS: Ht 170.2 cm; Wt 104.3 kg
[~2020-01-17 19:38] MED LIST changes: -CLIN300C11 PO; +CYAN500T47 PO; -DOCU250C14 PO; -L.RH1CAP PO; -LEVO500T20 PO; +LIP10 PO; -MORP15TA PO; +VITD2000 PO
[2020-01-17 19:45] VITALS: BP_SYST 137
--- NOTE | 2020-01-17 19:45 | NUR ---
Patient triaged and placed in waiting room. VSS and patient appears in no acute distress at this time. Accompanied by , awaiting available bed, and MD notified of need for MSE.
[2020-01-17] MEDS ORDERED: ONDANSETRON HCL 4 MG/2 ML VIAL IVP ONE ×2 (20:30→22:30)
[2020-01-17] MEDS ORDERED: NACL 0.9% 1,000 ML IV ONE (20:30)
[2020-01-17] MEDS ORDERED: MORPHINE 4 MG/ML INJ. SYRINGE IVP ONE ×2 (20:30→22:15)
[2020-01-17] MEDS ORDERED: IOHEXOL 100 ML IV ONE (20:46)
[2020-01-17 20:53] LABS: BASOPHILS # (AUTO) 0.1 K/uL (0.0-0.2); BASOPHILS % (AUTO) 0.8 % (0.0-2.0); EOSINOPHILS # (AUTO) 0.1 K/uL (0.0-0.4); EOSINOPHILS % (AUTO) 1.2 % (0.0-4.0); HEMATOCRIT 50.7 % (36-54); HEMOGLOBIN 17.3 g/dL (14.0-18.0); LYMPHOCYTES # (AUTO) 1.6 K/uL (1.0-5.5); LYMPHOCYTES % (AUTO) 17.1 % (20.5-51.5); MEAN CORPUSCULAR HEMOGLOBIN 31 pg (27-31); MEAN CORPUSCULAR HGB CONC 34 % (32-36); MEAN CORPUSCULAR VOLUME 92 fL (79.0-98.0); MONOCYTES # (AUTO) 0.7 K/uL (0.0-1.0); MONOCYTES % (AUTO) 7.3 % (1.7-9.3); NEUTROPHILS # (AUTO) 6.9 K/uL (1.8-7.7); NEUTROPHILS % (AUTO) 73.6 % (40.0-70.0); PLATELET COUNT (AUTO) 201 K/uL (130-430); RED BLOOD CELL COUNT(AUTO) 5.55 MIL/uL (4.2-6.2); RED CELL DISTRIBUTION WIDTH 14.6 % (9.0-15.0); WHITE BLOOD COUNT (AUTO) 9.3 K/uL (4.8-10.8)
[2020-01-17 21:00] LABS: CREATININE 1.36 mg/dL (0.55-1.30); POTASSIUM 3.6 mmol/L (3.5-5.1)
[2020-01-17 21:03] LABS: ALBUMIN 3.6 g/dL (3.4-4.8); TOTAL BILIRUBIN 1.1 mg/dL (0.0-1.0)
--- NOTE | 2020-01-17 21:16 | NUR ---
Placed in room 3 . Placed on security monitor, blood pressure machine and pulse oximeter. To gown for exam. Side rails up. Report given to Alex VAUGHN.
--- NOTE | 2020-01-17 21:20 | NUR ---
Pt states that he has had new onset of abdominal and pelvic pain. Pt states that he has had some pain in the past that feels almost identical when he had kidney stones. Pt states that his provider did not want to remove the stones at the time, stating that they might pass on their own. Pt states that he has been having mild nausea as well. Pt denies chest pain, nausea, vomiting, diarrhea, shortness of breath. Pt denies any other medical complaint at this time.
--- NOTE | 2020-01-17 21:21 | NUR ---
ER at bedside examining patient.
--- NOTE | 2020-01-17 22:00 | NUR ---
Pt resting comfortably in ED bed, no acute distress. Pt states pain has decreased
[2020-01-17] MEDS ORDERED: KETOROLAC TROMETHAMINE 30 MG VIAL IVP ONE (22:30)
[2020-01-17] MEDS ORDERED: KETOROLAC TROMETHAMINE 30 MG VIAL ONE (22:38)
[2020-01-17] MEDS ORDERED: ONDANSETRON HCL 4 MG/2 ML VIAL ONE (22:39)
--- NOTE | 2020-01-17 23:30 | NUR ---
Pt States pain is improving, requested last dosage of pain medication as he states he feels pain meds wearing off.
[2020-01-18] MEDS ORDERED: MORPHINE 4 MG/ML INJ. SYRINGE ONE (00:12)
[2020-01-18 00:20] VITALS: BP_SYST 130
--- NOTE | 2020-01-18 00:20 | NUR ---
Patient given written and verbal discharge instructions and verbalizes understanding. ER MD discussed with patient the results and treatment provided. Patient in stable condition. ID arm band removed. IV catheter removed intact and dressing applied, no active bleeding. Rx of [place], Naproxen, tamsulosin given. Patient educated on pain management and to follow up with PMD. Pain Scale 0/10. Opportunity for questions provided and answered. Medication side effect fact sheet provided.
== END 2020-01-18 00:20 | disposition home or self-care (01) ==
LOC: SED 19:38
DX: N20.1 Calculus of ureter (principal); R10.9 Unspecified abdominal pain; I10 Essential (primary) hypertension; E11.9 Type 2 diabetes mellitus without complications; Z86.73 Personal history of transient ischemic attack (TIA), and cerebral infarction without residual deficits; Z86.79 Personal history of other diseases of the circulatory system; Z79.899 Other long term (current) drug therapy; Z88.0 Allergy status to penicillin
CPT/HCPCS: 36415; 74177; 80053; 81002; 85025; 96361; 96374; 96375; 96376; 99285; J1885; J2270 ×2; J2405 ×2; J7030; Q9967

== ENCOUNTER 2020-03-16 17:54 | Emergency (ER) | payer OTHER ==
[~2020-03-16] VITALS: Ht 170.2 cm; Wt 99.8 kg
[2020-03-16 17:57] VITALS: BP_SYST 167
[2020-03-16] MEDS ORDERED: KETOROLAC TROMETHAMINE 60 MG/2 ML VIAL IM ONE (18:30)
[2020-03-16] MEDS ORDERED: HYDROcodone/ACETAMIN 7.5-325 MG TAB PO ONE (18:45)
[2020-03-16 19:12] LABS: BILIRUBIN,URINE NEGATIVE (NEGATIVE); BLOOD, URINE 3+ (NEGATIVE); CLARITY/URINE OTHER (CLEAR); COLOR,URINE RED (YELLOW); GLUCOSE,URINE NEGATIVE (NEGATIVE); KETONES,URINE TRACE (NEGATIVE); LEUKOCYTE ESTERASE ,URINE TRACE (NEGATIVE); NITRITE, URINE POSITIVE (NEGATIVE); PROTEIN URINE 3+ (NEGATIVE)
[2020-03-16] MEDS ORDERED: DIPHENHYDRAMINE INJ 50 MG/ML VIAL IM ONE (19:15)
[2020-03-16] MEDS ORDERED: MORPHINE SULFATE 10 MG/ML VIAL IM ONE (19:15)
[2020-03-16 20:04] LABS: BACTERIA,URINE MANY /HPF (None Seen); RBC,URINE >100 /HPF (0-3); TRICHOMONAS,URINE None Seen /HPF (None Seen); YEAST,URINE None Seen /HPF (None Seen)
[2020-03-16] MEDS ORDERED: NACL 0.9% 1,000 ML IV ONE (20:30)
[2020-03-16 21:16] LABS: BASOPHILS # (AUTO) 0.1 K/uL (0.0-0.2); BASOPHILS % (AUTO) 0.8 % (0.0-2.0); EOSINOPHILS # (AUTO) 0.2 K/uL (0.0-0.4); EOSINOPHILS % (AUTO) 2.9 % (0.0-4.0); HEMATOCRIT 45.5 % (36-54); HEMOGLOBIN 15.5 g/dL (14.0-18.0); LYMPHOCYTES # (AUTO) 2.4 K/uL (1.0-5.5); LYMPHOCYTES % (AUTO) 31.6 % (20.5-51.5); MEAN CORPUSCULAR HEMOGLOBIN 31 pg (27-31); MEAN CORPUSCULAR HGB CONC 34 % (32-36); MEAN CORPUSCULAR VOLUME 92 fL (79.0-98.0); MONOCYTES # (AUTO) 0.6 K/uL (0.0-1.0); MONOCYTES % (AUTO) 7.4 % (1.7-9.3); NEUTROPHILS # (AUTO) 4.3 K/uL (1.8-7.7); NEUTROPHILS % (AUTO) 57.3 % (40.0-70.0); PLATELET COUNT (AUTO) 219 K/uL (130-430); RED BLOOD CELL COUNT(AUTO) 4.96 MIL/uL (4.2-6.2); WHITE BLOOD COUNT (AUTO) 7.5 K/uL (4.8-10.8)
[2020-03-16 21:22] LABS: CALCIUM 8.5 mg/dL (8.4-11.0); CREATININE 1.05 mg/dL (0.55-1.30); POTASSIUM 4.1 mmol/L (3.5-5.1)
[2020-03-16 21:27] LABS: ALBUMIN 3.8 g/dL (3.4-4.8)
[2020-03-16] MEDS ORDERED: LEVOFLOXACIN 500 MG/D5W 100 ML IV ONE (22:30)
[2020-03-17 00:20] VITALS: BP_SYST 147
== END 2020-03-17 00:20 | disposition home or self-care (01) ==
LOC: SED 17:54
DX: N20.0 Calculus of kidney (principal); K85.90 Acute pancreatitis without necrosis or infection, unspecified; N39.0 Urinary tract infection, site not specified; I10 Essential (primary) hypertension; E11.9 Type 2 diabetes mellitus without complications; Z90.49 Acquired absence of other specified parts of digestive tract; Z86.73 Personal history of transient ischemic attack (TIA), and cerebral infarction without residual deficits; Z86.79 Personal history of other diseases of the circulatory system; Z79.899 Other long term (current) drug therapy; Z88.0 Allergy status to penicillin
CPT/HCPCS: 36415; 74176; 80053; 81000; 83690; 85025; 87040; 96361; 96365; 96372; 99284; J1200; J1885; J1956; J2270; J7030